=== PATIENT | female | born 1955 | race American Indian/Alaskan Native ===

== ENCOUNTER 2019-08-30 15:17 | Emergency (ER) | payer SELFPAY ==
[2019-08-30 15:29] VITALS: BP 157/89
--- NOTE | 2019-08-30 17:31 | Emergency Department Report ---
Chief Complaint: Medical Clearance Stated Complaint: MED REFILL/DIABETIC Time Seen by Provider: 08/30/19 17:29 - HPI History of Present Illness: no complaints Here in [place] visiting family stayed longer than anticipated and ran out of DM meds PMH DM neuropathy Rx metformin 1000 bid glip 10 bid psh tubal choley menopausal nkda no travel would accept blood if needed VS normal. HR 80 Sat 100 on room air 150/70 temp 98 - ROS Review of Systems: no complaints - Exam Vital Signs: Vital Signs 08/30/19 15:22 Temperature 98.5 F Pulse Rate 89 Respiratory 16 Rate Blood Pressure 157/89 O2 Sat by Pulse 95 Oximetry Physical Exam: alert oriented s1s2 lungs cta abd snt MSE screening note: Focused history and physical exam performed. Due to findings the following was ordered: Patient discussed with doctor:: JONO DELGADO ED Disposition for MSE Clinical Impression: Medication refill Disposition: MED SCREENING EXAM-LEFT Is pt being admited?: No Does the pt Need Aspirin: No Condition: Stable Prescriptions: metFORMIN [Glucophage] 1,000 mg PO BID #120 tablet glipiZIDE [Glucotrol] 5 mg PO BID #60 tablet Referrals: NUBIA BRAY MD [Staff Physician] - 3-5 Days Time of Disposition: 17:30
== END 2019-08-30 17:32 | disposition left against medical advice (07) ==
LOC: ED 15:17
DX: E11.9 Type 2 diabetes mellitus without complications (principal); Z76.0 Encounter for issue of repeat prescription
CPT/HCPCS: 99281